=== PATIENT | male | born 2000 | race Caucasian/White ===

== ENCOUNTER 2018-08-28 11:51 | Outpatient (CLI) | payer OTHER | END 2018-08-31 10:56 | disposition home or self-care (01) | LOC: RAD 11:51 | DX: S99.822A Other specified injuries of left foot, initial encounter (principal) ==

== ENCOUNTER 2020-11-21 10:21 | Outpatient (CLI) | payer OTHER | END 2020-11-21 15:30 | disposition home or self-care (01) | LOC: RAD 10:21 | PROVIDERS: ATTEND Radiology Diagnostic Radiology | DX: S93.492A Sprain of other ligament of left ankle, initial encounter (principal) ==